=== PATIENT | female | born 1990 | race Caucasian/White ===

== ENCOUNTER 2018-10-14 06:28 | Emergency (ER) | payer MEDICAID ==
[~2018-10-14] VITALS: Ht 162.6 cm; Wt 44.9 kg
[~2018-10-14 06:28] MED LIST: LOW OGESTREL
--- NOTE | 2018-10-14 06:50 | NUR ---
cheif complaint of left arm swollen and low grade fever. Patient stated she had done methy 1 day prior to come in. Patient stated she feels like it can be possibly from a bug bite.
--- NOTE | 2018-10-14 07:06 | NUR ---
patient left without being seen by physician,.
== END 2018-10-14 07:07 | disposition left against medical advice (07) ==
LOC: ER 06:36
DX: Z53.21 Procedure and treatment not carried out due to patient leaving prior to being seen by health care provider (principal)
CPT/HCPCS: A4663